=== PATIENT | female | born 1955 | race Caucasian/White ===

== ENCOUNTER → 2017-02-23 | Outpatient (CLI) | payer OTHER ==
--- NOTE | 2017-02-23 10:01 | Diagnostic Imaging Report ---
EXAMINATION: Right breast diagnostic mammogram with a Computer Aided Detection (CAD) system. INDICATION: Right breast focal asymmetry in the central slightly lateral aspect of the right breast. FINDINGS: There is a calcification seen in the central aspect of the right breast and stable parenchymal densities, slightly dense in the outer upper aspect. There is a stable circumscribed 7 mm lobulated nodule in the central aspect of the right breast slightly lateral in location. No adverse development. IMPRESSION: Stable 7 mm central slightly lateral right breast lobulated nodule. The ultrasound evaluation is pending. ACR BI-RADS Category 0: Incomplete. (Needs additional imaging evaluation). Result letter will be mailed to the patient. Note: At least 10% of breast cancer is not imaged by mammography. Dictated by: Dictated on workstation # [id number]
--- NOTE | 2017-02-23 10:01 | Diagnostic Imaging Report ---
Right breast ultrasound. Indication: followup nodule in the central slightly outer aspect of the right breast. Findings: At the 8:00 zone, 5 CM from the nipple there is a simple cyst the again seen measuring 6 x 4 x 7 mm. No suspicious mass noted. No adverse development. Impression: Simple cyst at 8:00 zone, 5 CM from the nipple correlates with the mammographic findings with no suspicious abnormality and without significant change. Annual screening mammograms recommended. BI-RADS 2. Dictated by: Dictated on workstation # [id number]
== END ==
LOC: RAD 08:58
PROVIDERS: ATTEND Nurse Practitioner Family
DX: R92.8 Other abnormal and inconclusive findings on diagnostic imaging of breast (principal)